=== PATIENT | female | born 1930 | race Caucasian/White ===

== ENCOUNTER 2017-03-15 13:23 | Inpatient (IN) | payer MEDICARE, BC ==
[~2017-03-15] VITALS: Ht 160 cm; Wt 59.0 kg
[2017-03-15 13:38] VITALS: BP 159/52
[2017-03-15] MEDS ORDERED: NORVASC2.5 MG PO (13:43)
[2017-03-15] MEDS ORDERED: LEXAPRO10 MG PO (13:44)
[2017-03-15] MEDS ORDERED: XARELTO10 MG PO (13:45)
[2017-03-15] MEDS ORDERED: ULTRAM50 MG PO (13:45)
--- NOTE | 2017-03-15 14:59 | NUR ---
RESTING QUIETLY IN BED. EYES CLOSED. NO S/S DISTRESS. CALL LIGHT IN REACH
--- NOTE | 2017-03-15 18:48 | NUR ---
MAX ASST TO TRANSFER. TAPE SALAS NOTED TO LEG WHERE HIP DSG WAS AND RAW AREA TO LEGS WHERE NAIF HOSE WERE ROLLED DOWN TO.
--- NOTE | 2017-03-15 19:50 | NUR ---
DAUGHTER IN BED SIDE TALK TO PT.
--- NOTE | 2017-03-15 21:20 | NUR ---
PT C/O TAPE BURN IN HIP, CHECK AND TALK TO CHARGE NURSE. AND APPLIED MEPILEX BORDER LITE DRESSING COVER TAPE BURN AREA.
--- NOTE | 2017-03-15 21:25 | NUR ---
PT C/O WOUND AREA IRRITATED BY BLANKET AND WANT DRESSING COVER WOUND AREA. CLEAN WOUND WITH WOUND CLEANSER, COVER AND SECURE WITH ISLAND WOUND DRESSING.
--- NOTE | 2017-03-16 00:36 | NUR ---
ASSISTED PT WITH BEDPAN.
[2017-03-16 01:32] VITALS: BP 150/52
--- NOTE | 2017-03-16 04:00 | NUR ---
IN BED, EYES CLOSED.
--- NOTE | 2017-03-16 04:10 | NUR ---
PT REST QUIETLY IN BED, EYE CLOSE, BED LOW, CALL LIGHT WITHIN REACH.
[2017-03-16 06:52] LABS: BASOPHILS 0.3 % (0-2); EOSINOPHILS 3.9 % (0-7); HEMATOCRIT 29.8 % (36.0-48.0); HEMOGLOBIN 9.9 g/dL (12-16); IMMATURE GRANULOCYTES 0.5 % (0-5); LYMPHOCYTES 39.5 % (15-50); MCH 31.8 pg (26.0-34.0); MCHC 33.2 g/dL (31.0-37.0); MCV 95.8 fL (80.0-100.0); MONOCYTES 12.6 % (2-11); NEUTROPHILS 43.2 % (40-80); PLATELET COUNT 199 10x3/uL (130-400); RBC 3.11 10x6/uL (4.00-5.40); RDW 12.6 % (11.5-14.5); WBC 6.5 10x3/uL (4.8-10.8)
[2017-03-16 07:22] LABS: ANION GAP 8.9 mmol/L (8-16); CALCIUM 8.7 mg/dL (8.5-10.1); CARBON DIOXIDE 30.5 mmol/L (21.0-32.0); CREATININE - SERUM 0.9 mg/dL (0.6-1.3); POTASSIUM - SERUM 3.4 mmol/L (3.5-5.1)
[2017-03-16 08:38] VITALS: BP 143/44
--- NOTE | 2017-03-16 16:21 | NUR ---
Patient in bed, hob 30 degrees, complaints of pain 5/10 on numeric scale. She was given 50 mg of ultram. She is resting comfortably. foam booties on feet, bed low, call light in reach. Continue to monitor, continue plan of care.
--- NOTE | 2017-03-16 18:09 | NUR ---
Patient in bed, hob 30 degrees, complaints of pain 5/10 on numeric scale. She was given 50 mg of ultram. She is resting comfortably. Foam booties on feet, bed low, call light in reach. Continue to monitor, continue plan of care.
--- NOTE | 2017-03-16 20:00 | NUR ---
PT IN BED WITH HOB UP FOR COMFORT. RESTING QUIETLY. NO 02. NO IV. ALERT & ORIENTED. MOD. TO MAX. ASSIST. CONTINENT OF BOWEL AND BLADDER. PAIN LEVEL 0/10. EXCORIATION IN THREE PLACES ON RIGHT HIP AND THIGH. RIGHT HIP ISLAND DRESSING C/D/I. BED IN LOWEST POSITION AND CALL LIGHT WITHIN REACH.
--- NOTE | 2017-03-16 20:00 | NUR ---
PT IN BED WITH HOB UP FOR COMFORT. TALKING ON CELLPHONE. NO 02. NO IV. ALERT & ORIENTED. CONTINENT OF BOWEL AND BLADDER. PAIN LEVEL 0/10. SMOKER. STAND BY ASSIST. VENOUS STASIS ULCER RIGHT LEG. BED IN LOWEST POSITION AND CALL LIGHT WITHIN REACH.
[2017-03-16 22:07] VITALS: BP 128/74
--- NOTE | 2017-03-17 | NUR ---
PT IN BED WITH HOB UP FOR COMFORT. EYES CLOSED. CHEST RISING AND FALLING. BED IN LOWEST POSITION AND CALL LIGHT WITHIN REACH.
--- NOTE | 2017-03-17 04:00 | NUR ---
PT IN BED WITH HOB UP FOR COMFORT. EYES CLOSED. RESPIRATIONS EVEN AND UNLABORED. BED IN LOWEST POSITION AND CALL LIGHT WITHIN REACH.
--- NOTE | 2017-03-17 08:00 | NUR ---
SHIFT ASSMT COMPLETED.RIGHT HIP DRSG INTACT.SITTING UP IN BED FOR BREAKFAST.CL IN REACH.
[2017-03-17 09:24] VITALS: BP 140/41
--- NOTE | 2017-03-17 12:00 | NUR ---
MEAL TRAY GIVEN.CL IN REACH.
--- NOTE | 2017-03-17 16:00 | NUR ---
NO CO VOICED.CL IN REACH.
--- NOTE | 2017-03-17 19:40 | NUR ---
ASSISTED PT WITH BEDPAN.
[2017-03-17 21:02] VITALS: BP 128/64
--- NOTE | 2017-03-17 21:40 | NUR ---
DRESSING CHANGE FOR PT.
--- NOTE | 2017-03-18 02:37 | NUR ---
PT REST IN BED, EYE CLOSE, BED LOW, CALL LIGHT WITHIN REACH.
--- NOTE | 2017-03-18 04:42 | NUR ---
ASSISTED PT TO BATHROOM AND BACK TO BED.
[2017-03-18 06:22] LABS: BASOPHILS 0.3 % (0-2); EOSINOPHILS 1.5 % (0-7); HEMOGLOBIN 9.3 g/dL (12-16); IMMATURE GRANULOCYTES 0.4 % (0-5); LYMPHOCYTES 27.7 % (15-50); MCH 31.8 pg (26.0-34.0); MCHC 33.2 g/dL (31.0-37.0); MCV 95.9 fL (80.0-100.0); MEAN PLATELET VOLUME 10.2 fL (7.4-10.4); MONOCYTES 11.5 % (2-11); NEUTROPHILS 58.6 % (40-80); RBC 2.92 10x6/uL (4.00-5.40); RDW 12.6 % (11.5-14.5); WBC 6.7 10x3/uL (4.8-10.8)
[2017-03-18 06:29] LABS: PLATELET COUNT 267 10x3/uL (130-400)
[2017-03-18 06:56] LABS: ANION GAP 11.2 mmol/L (8-16); CALCIUM 8.8 mg/dL (8.5-10.1); CARBON DIOXIDE 29.1 mmol/L (21.0-32.0); CREATININE - SERUM 0.9 mg/dL (0.6-1.3)
[2017-03-18 07:18] LABS: POTASSIUM - SERUM 4.3 mmol/L (3.5-5.1)
--- NOTE | 2017-03-18 08:00 | NUR ---
SHIFT ASSMT COMPLETED.DENIES NEEDS.DRSG RT HIP INTACT.
[2017-03-18 09:06] VITALS: BP 123/41
--- NOTE | 2017-03-18 12:00 | NUR ---
EATING LUNCH.CL IN REACH.
[2017-03-18 13:26] VITALS: Ht 160 cm; Wt 59.0 kg
--- NOTE | 2017-03-18 16:00 | NUR ---
RESTING QUIETLY.CL IN REACH.
--- NOTE | 2017-03-18 17:00 | NUR ---
CARE TEAM MEETING: FAMILY ATTENDED MEETING, PATIENT NEW TO UNIT AND WILL BE RA AT NEXT MEETING. PLANS ARE FOR PATIENT TO RETURN HOME OR POSSIBLE ASSISTED LIVING. WILL CONTINUE TO FOLLOW WITH PATIENT.
--- NOTE | 2017-03-18 19:50 | NUR ---
PT RECEIVED IN BED WITH EYES OPEN WATCHING TV. NO COMPLAINTS OF PAIN OR DISCOMFORT OR OTHER NEEDS OR CONCERNS MADE KNOWN. CALL LIGHT IN REACH. WILL CONTINUE TO OBSERVE.
[2017-03-18 22:58] VITALS: BP 132/58
--- NOTE | 2017-03-18 22:59 | NUR ---
PT IN BED WITH EYES OPEN IN DARK. NO CONCERNS OR COMPLAINTS MADE KNOWN AT THIS TIME. CALL LIGHT IN REACH. WILL CONTINUE TO OBSERVE.
--- NOTE | 2017-03-19 01:38 | NUR ---
PT IN BED WITH EYES CLOSED AND CHEST RISING. NO SIGN/SYMPTOMS OF DISTRESS NOTED. CALL LIGHT IN REACH. WILL CONTINUE TO OBSERVE.
--- NOTE | 2017-03-19 06:39 | NUR ---
PT IN BED WITH EYES OPEN DRINKING COFFEE. NO CONCERNS NOTED AT THIS TIME. RECEIVED AM MEDICATIONS PER MAR WITHOUT DIFFICULTY. MODERATE ASSIST WITH TRANSFER TO WHEELCHAIR TO TOILET AND BACK TO BED. PT PIVOTING ON LEFT LEG. CALL LIGHT IN REACH.
--- NOTE | 2017-03-19 07:30 | NUR ---
AWAKE.DENIES PAIN AT PRESENT TIME BUT STATES PAIN WITH ACTIVITY.ASSESSMENT COMPLETED.IS NON WEIGHT BEARING RT.LEG.INCISIONS HEALING WELL,WILL CONTINUE WITH PLAN OF CARE.ASSISTED TO BR WHERE SHE VOIDED WITHOUT PROBLEM.
[2017-03-19 09:42] VITALS: BP 134/44
--- NOTE | 2017-03-19 19:15 | NUR ---
PT RECEIVED IN BED WITH EYES OPEN. DAUGHTER AT BEDSIDE. STATES SHE JUST RETURNED FROM BATHROOM WITH ASSIST FROM DAUGHTER. NO NEEDS OR CONCERNS NOTED AT THIS TIME. CALL LIGHT IN REACH. WILL CONTINUE TO OBSERVE.
[2017-03-19 22:11] VITALS: BP 128/68
--- NOTE | 2017-03-19 23:27 | NUR ---
PT IN BED WITH EYES CLOSED AND CHEST RISING. NO CONCERNS NOTED AT THIS TIME. ASSISTED TO TOILET WITH MIN ASSIST AND RETURNED TO BED PIVOTING ON LEFT FOOT ON TRANSFERS. CALL LIGHT IN REACH. WILL CONTINUE TO OBSERVE.
--- NOTE | 2017-03-20 02:40 | NUR ---
PT IN BED WITH EYES CLOSED AT THIS TIME. NO SIGN/SYMPTOMS OF DISTRESS NOTED. CALL LIGHT IN REACH. WILL CONTINUE TO OBSERVE.
[2017-03-20 07:18] LABS: BASOPHILS 0.3 % (0-2); EOSINOPHILS 0.7 % (0-7); HEMATOCRIT 28.8 % (36.0-48.0); HEMOGLOBIN 9.3 g/dL (12-16); IMMATURE GRANULOCYTES 0.3 % (0-5); LYMPHOCYTES 30.2 % (15-50); MCH 31.3 pg (26.0-34.0); MCHC 32.3 g/dL (31.0-37.0); MEAN PLATELET VOLUME 9.9 fL (7.4-10.4); MONOCYTES 11.4 % (2-11); NEUTROPHILS 57.1 % (40-80); RBC 2.97 10x6/uL (4.00-5.40); RDW 12.9 % (11.5-14.5); WBC 7.6 10x3/uL (4.8-10.8)
[2017-03-20 07:28] LABS: PLATELET COUNT 349 10x3/uL (130-400)
[2017-03-20 07:53] LABS: ANION GAP 11.3 mmol/L (8-16); CALCIUM 8.5 mg/dL (8.5-10.1); CREATININE - SERUM 0.9 mg/dL (0.6-1.3); POTASSIUM - SERUM 4.3 mmol/L (3.5-5.1)
[2017-03-20 09:01] VITALS: BP 150/50
--- NOTE | 2017-03-20 14:10 | NUR ---
Nutrition Follow Up: Chart reviewed. Pt is eating 50% meal avg on a regular diet. Wt stable. +BM 03/19/17. Labs reviewed. Meds noted including Megace. Pt with fair but improving po intake. Rec continue current diet. Will add Ensure with meals. Rec continue Megace. RD following.
--- NOTE | 2017-03-20 17:30 | NUR ---
ASSISTED PT TO BATHROOM AND BACK TO BED.
[2017-03-20 19:00] VITALS: BP 130/76
--- NOTE | 2017-03-20 21:20 | NUR ---
PT REST IN BED, BED LOW, CALL LIGHT WITHIN REACH.
--- NOTE | 2017-03-20 22:26 | NUR ---
ASSISTED PT TO BATHROOM AND BACK TO BED.
--- NOTE | 2017-03-21 00:55 | NUR ---
IN BED, EYES CLOSED. NO EVIDENT DISTRESS.
--- NOTE | 2017-03-21 04:20 | NUR ---
ASSISTED PT TO BATHROOM AND BACK TO BED.
[2017-03-21 08:00] VITALS: BP 154/57
--- NOTE | 2017-03-21 08:00 | NUR ---
SHIFT ASSMT COMPLETED.MEAL SET-UP PROVIDED.DENIES NEEDS.INCISIONS RIGHT HIP WITH ABIOLA INTACT.CL IN REACH.
--- NOTE | 2017-03-21 12:00 | NUR ---
EATING LUNCH.DENIES NEEDS.
--- NOTE | 2017-03-21 15:30 | NUR ---
ABIOLA REMOVED STERI STRIPS APPLIED INCISION CLEAN DRY INTACT PT TOLERATED WELL
--- NOTE | 2017-03-21 19:35 | NUR ---
ASSISTED PT TO BATHROOM AND BACK TO BED.
--- NOTE | 2017-03-21 21:30 | NUR ---
PT REST IN BED, EYE OPEN, DENIES NEEDS.
[2017-03-21 23:55] VITALS: BP 150/43
--- NOTE | 2017-03-22 00:40 | NUR ---
RESTING QUIETLY, EYES CLOSED.
--- NOTE | 2017-03-22 04:10 | NUR ---
PT REST QUIETLY IN BED, BED LOW, CALL LIGHT WITHIN REACH.
[2017-03-22 08:00] VITALS: BP 146/55
--- NOTE | 2017-03-22 19:45 | NUR ---
PT. IN PROCESS OF GETTING BACK INTO BED AFTER USING BR TO URINATE. POSITIONED TO COMFORT. ASSESSMENT COMPLETED. NO VOICED NEEDS AT THIS TIME AND HER CALL LIGHT IS WITHIN REACH.
--- NOTE | 2017-03-22 23:06 | NUR ---
PT. IN BED WITH HOB ALMOST FLAT. EYES CLOSED AND RESP. DEEP AND EVEN. CALL LIGHT WITHIN REACH.
[2017-03-22 23:20] VITALS: BP 89/44
--- NOTE | 2017-03-23 03:09 | NUR ---
PT. IN BED LYING FLAT FOR COMFORT WITH EYES CLOSED AND RESP. EVEN. CALL LIGHT WITHIN REACH.
[2017-03-23 06:40] LABS: BASOPHILS 0.3 % (0-2); EOSINOPHILS 0.4 % (0-7); HEMATOCRIT 31.2 % (36.0-48.0); IMMATURE GRANULOCYTES 0.9 % (0-5); LYMPHOCYTES 32.9 % (15-50); MCH 31.4 pg (26.0-34.0); MCHC 32.1 g/dL (31.0-37.0); MCV 98.1 fL (80.0-100.0); MEAN PLATELET VOLUME 9.9 fL (7.4-10.4); MONOCYTES 9.1 % (2-11); NEUTROPHILS 56.4 % (40-80); PLATELET COUNT 480 10x3/uL (130-400); RBC 3.18 10x6/uL (4.00-5.40); RDW 13.4 % (11.5-14.5); WBC 9.2 10x3/uL (4.8-10.8)
[2017-03-23 06:55] LABS: ANION GAP 11.4 mmol/L (8-16); CALCIUM 9.1 mg/dL (8.5-10.1); CARBON DIOXIDE 28.9 mmol/L (21.0-32.0); CREATININE - SERUM 0.9 mg/dL (0.6-1.3); POTASSIUM - SERUM 4.3 mmol/L (3.5-5.1)
--- NOTE | 2017-03-23 07:36 | NUR ---
RESTING QUIETLY IN BED CALL LIGHT IN REACH
[2017-03-23 09:10] VITALS: BP 130/47
--- NOTE | 2017-03-23 16:05 | NUR ---
PT SITTING UP IN BED INTERACTING WITH FAMILY
--- NOTE | 2017-03-23 17:42 | NUR ---
PT IN BED VISITING WITH FAMILY
[2017-03-23 19:04] VITALS: BP 139/50
--- NOTE | 2017-03-23 19:20 | NUR ---
PT. IN BED WITH HOB UP FOR COMFORT AND IS WATCHING TV. ASSESSMENT COMPLETED. NO VOICED NEEDS AT THIS TIME AND WILL WANT HER PAIN MED. SCHEDULED TO KEEP PAIN CONTROLLED. CALL LIGHT WITHIN REACH.
--- NOTE | 2017-03-23 23:02 | NUR ---
PT. IN BED WITH HOB UP FOR COMFORT WITH EYES CLOSED AND RESP. DEEP AND EVEN. CALL LIGHT WITHIN REACH.
--- NOTE | 2017-03-24 03:01 | NUR ---
PT. IN BED WITH HOB UP FOR COMFORT WITH EYES CLOSED AND RESP. DEEP AND EVEN. CALL LIGHT WITHIN REACH.
--- NOTE | 2017-03-24 06:26 | NUR ---
PT. IN BED WITH HOB UP FOR COMFORT WITH EYES CLOSED AND RESP. EVEN. PT. AWAKENED EASILY FOR MORNING MEDS. NO C/O PAIN AND PT. STATED SHE WILL WANT SOMETHING CLOSER TO THERAPY TIME. CALL LIGHT WITHIN REACH.
--- NOTE | 2017-03-24 07:30 | NUR ---
LAYING ON BACK IN BED WITH EYES CLOSED. NO S/S DISTRESS. CALL LIGHT IN REACH
[2017-03-24 08:00] VITALS: BP 139/47
--- NOTE | 2017-03-24 10:48 | NUR ---
SITTING UP IN W/C. DENIES NEEDS OR INCREASED PAIN.
--- NOTE | 2017-03-24 13:36 | NUR ---
Nutrition Follow Up: Pt reported that her appetite is improving. She said that she does not like the scrambled eggs here. Pt said that she is drinking Ensure. Pt is eating 60% meal avg on a regular diet. No new wt. +BM 03/22/17. Labs reviewed. Meds noted including Megace. Pt with improving po intake. Rec continue current diet. Will honor food preferences. Rec continue appetite stimulant. RD following.
--- NOTE | 2017-03-24 19:15 | NUR ---
ASSESSMENT PER FLOW SHEET, PT REPORTS BM YESTERDAY, +FLATUS, PT REQUESTS TO GET UP LATER TO CHANGE INTO GOWN, INFORMED PT TO USE CALL LIGHT WHEN READY, PT DENIES NEEDS OR PAIN AT THIS TIME
--- NOTE | 2017-03-24 20:25 | NUR ---
PT IN BED, DAYCARE PROVIDER ASSISTED PT WITH [place], INFORMED PT THAT PAIN MED WAS DUE AROUND 9:30PM, PT VERBALIZES UNDERSTANDING, PT DENIES NEEDS AT THIS TIME
--- NOTE | 2017-03-24 21:28 | NUR ---
PT AWAKE, ADM PAIN MED PO PER MD ORDERS, SEE EMAR, PT UP TO BR VIA WC WITH ASSISTANCE, PT VOIDED BY SELF WITH NO DIFFICULTY, PT BACK TO BED, HEEL BOOT PLACED BACK ON, DENIES FURTHER NEEDS
[2017-03-24 21:39] VITALS: BP 148/44
--- NOTE | 2017-03-24 22:15 | NUR ---
PT RESTING WITH EYES CLOSED, RESP QUIET, NO DISTRESS NOTED, LEFT UNDISTURBED AT THIS TIME
--- NOTE | 2017-03-25 00:02 | NUR ---
PT RESTING WITH EYES CLOSED, RESP QUIET, NO DISTRESS NOTED, LEFT UNDISTURBED AT THIS TIME
--- NOTE | 2017-03-25 02:20 | NUR ---
PT COMPENSATION VICE PRESIDENT LIGHT, PT UP TO BR VIA WC WITH ASSISTANCE, PT TO COMMODE, VOIDED BY SELF WITH NO DIFFICULTY, PT BACK TO BED, HEEL PROTECTOR BACK ON, PT DENIES FURTHER NEEDS OR PAIN
--- NOTE | 2017-03-25 04:10 | NUR ---
PT RESTING WITH EYES CLOSED, RESP QUIET, NO DISTRESS NOTED, LEFT UNDISTURBED AT THIS TIME
--- NOTE | 2017-03-25 06:00 | NUR ---
PT UP TO BR VIA WC WITH ASSISTANCE, PT VOIDED BY SELF WITH NO DIFFICULTY, PT BACK TO BED, DENIES FURTHER NEEDS AT THIS TIME
[2017-03-25 06:12] LABS: BASOPHILS 0.2 % (0-2); EOSINOPHILS 0.3 % (0-7); HEMATOCRIT 31.1 % (36.0-48.0); HEMOGLOBIN 10.3 g/dL (12-16); IMMATURE GRANULOCYTES 0.6 % (0-5); LYMPHOCYTES 30.8 % (15-50); MCHC 33.1 g/dL (31.0-37.0); MCV 96.6 fL (80.0-100.0); MEAN PLATELET VOLUME 9.4 fL (7.4-10.4); NEUTROPHILS 59.1 % (40-80); PLATELET COUNT 490 10x3/uL (130-400); RBC 3.22 10x6/uL (4.00-5.40); RDW 13.6 % (11.5-14.5); WBC 9.4 10x3/uL (4.8-10.8)
--- NOTE | 2017-03-25 06:30 | NUR ---
ADM 0700 MED PO PER MD ORDERS, SEE EMAR, PT DENIES NEEDS OR PAIN AT THIS TIME
[2017-03-25 06:37] LABS: ANION GAP 11.5 mmol/L (8-16); CALCIUM 8.7 mg/dL (8.5-10.1); CARBON DIOXIDE 27.9 mmol/L (21.0-32.0); CREATININE - SERUM 0.9 mg/dL (0.6-1.3); POTASSIUM - SERUM 4.4 mmol/L (3.5-5.1)
--- NOTE | 2017-03-25 07:00 | NUR ---
SHIFT REPORT TO DAY SHIFT
--- NOTE | 2017-03-25 08:00 | NUR ---
SHIFT ASSMT COMPLETED.SITTING UP FOR BREAKFAST.CL IN REACH.INCISION CLEAN INTACT AND DRY.
[2017-03-25 08:18] VITALS: BP 147/44
--- NOTE | 2017-03-25 12:00 | NUR ---
SITTING UP EATING.CL IN REACH.FAMILY AT BEDSIDE.
--- NOTE | 2017-03-25 16:00 | NUR ---
HAD BM X 3 AFTER LAXATIVE.GOOD RESULTS.CL IN REACH.
--- NOTE | 2017-03-25 17:05 | NUR ---
CARE TEAM MEETING: DAUGHTER ATTENDED MEETING.PATIENT AND DAUGHTER WANTS REFERRAL MADE TO [facility] IN [place] FOR WHEN SHE IS DISCHARGED. TENATIVE DISCHARGE DATE IS 03/31/17. WILL CONTINUE TO FOLLOW WITH PATIENT
[2017-03-25 19:07] VITALS: BP 142/48
--- NOTE | 2017-03-25 19:40 | NUR ---
ASSISTED PT TO BATHROOM AND BACK TO BED. ALERT AND ORIENTED. PAIN LEVEL 0/10. NO 02. NO IV. NON WEIGHT BEARING ON RIGHT LEG. MIN. ASSIST. BED IN LOWEST POSITION AND CALL LIGHT WITHIN REACH.
--- NOTE | 2017-03-25 23:40 | NUR ---
PT IN BED WITH HOB UP FOR COMFORT. EYES CLOSED. CHEST RISING AND FALLING. BED IN LOWEST POSITION AND CALL LIGHT WITHIN REACH.
--- NOTE | 2017-03-26 03:40 | NUR ---
PT IN BED WITH HOB UP FOR COMFORT. EYES CLOSED. RESPIRATIONS EVEN AND UNLABORED. BED IN LOWEST POSITION AND CALL LIGHT WITHIN REACH.
--- NOTE | 2017-03-26 08:00 | NUR ---
SHIFT ASSMT COMPLETED.DENIES NEEDS.STATES NO LAXATIVES TODAY.DENIES PAIN TO RIGHT HIP.INCISION INTACT.CL IN REACH.
--- NOTE | 2017-03-26 11:06 | NUR ---
patient has been accepted to [facility] in [place] and will discharge there 03/31/16 via facility van. family and patient has been notified
[2017-03-26 11:44] VITALS: BP 142/42
--- NOTE | 2017-03-26 12:00 | NUR ---
SITTING UP EATING LUNCH.
--- NOTE | 2017-03-26 12:07 | RHP ---
PATIENT: IRLANDA JONES MEDICAL RECORD: [id number] ACCOUNT: [id number] LOCATION:[facility]1117 : [birth year] ADMISSION DATE: 03/15/17 REHABILITATION HISTORY AND PHYSICAL EXAMINATION POST ADMISSION PHYSICIAN EXAMINATION DATE OF ADMISSION TO THE REHAB: 03/15/2017 ADMITTING DIAGNOSIS: Right intertrochanteric hip fracture. HISTORY OF PRESENT ILLNESS: The patient is an 86-year-old female patient, who is status post nailing of her right intertrochanteric hip fracture. She lives alone in [place]. In the morning of March 11, she was walking into her kitchen to get a cup of coffee and fell on to the floor. She was unsure why she passed out. She had immediate pain and inability to bear weight on her right leg. She was brought to the Emergency Room. X-rays revealed an intertrochanteric hip fracture. She was admitted with orthopedic consult. On March 12, she went to the OR for intramedullary nailing of the right intertrochanteric fracture. She had postop anemia, but did not require blood transfusion. Prior to admission, she was completely independent with ADLs and mobility without assistive device. She continues to drive. She is currently [id number] assist for mobility. She lives alone and her next-of-kin is her daughter who lives here in [place]. She is motivated to regain her strength and be able to return home at [place] in her prior level of functioning. COMORBIDITIES: Include status post intramedullary nailing of a right intertrochanteric hip fracture, postoperative anemia, hypertension, depression, right hip pain, fall, decreased standing tolerance, pain intolerance and self-care deficits. PAST MEDICAL HISTORY: Significant for hypertension and depression. PAST SURGICAL HISTORY: Includes a knee arthroscopy. ALLERGIES: SULFA, CODEINE AND SHELLFISH. CURRENT MEDICATIONS: Include Lexapro 10 mg daily, amlodipine 2.5 mg daily. She is on Xarelto 10 mg daily and tramadol 50 mg q.4 hours as needed for pain. HABITS: No alcohol or tobacco use. FAMILY HISTORY: Noncontributory. SOCIAL HISTORY: The patient hopes to return to [place] and get back to her prior level of functioning. Lives alone. REVIEW OF SYSTEMS: GENERAL: Denies weakness or fatigue. HEENT: Denies cold, cough, or congestion. CARDIOVASCULAR: Denies chest pain. PHYSICAL EXAMINATION: VITAL SIGNS: Stable, afebrile. GENERAL: A well-developed elderly female in no acute distress, alert upon exam. HEENT: Normocephalic, atraumatic. Mucosa moist. HISTORY AND PHYSICAL [id number] KARENIRLANDA NECK: Supple. No lymphadenopathy. LUNGS: Clear at this time. HEART: Regular rate and rhythm. ABDOMEN: Benign. EXTREMITIES: Consistent with hip surgery and postop swelling appears normal. NEUROLOGIC: Seems intact. LABORATORY DATA: Her white count is 6.5, H&H of 10 and 29 and her platelet count is noted to be 199. Sodium 136, potassium is 3.4, BUN and creatinine of 14 and 0.9, blood sugar is noted to be 98. ASSESSMENT: This is an 86-year-old female patient admitted to rehab with a working diagnosis of status post intramedullary nailing of a right intertrochanteric hip fracture. The patient has potential to make improvement. We instituted the following multidisciplinary therapies including, but not limited to physical, occupational, respiratory, speech, nutritional services, prosthetics and orthotics. Given her complex condition and risk for more complications, rehabilitation services cannot be provided at a low level of care such as a [facility] facility. PLAN: 1. Admit to [facility] rehab for intensive inpatient therapy to include the following disciplines: A. Physical therapy to improve gait, all transfer skills and bed mobility to a modified independent level. B. Occupational therapy to improve activities of daily living to a modified independent level. C. Case management to assist with discharge planning and placement options. D. Nutrition to assist with nutritional needs. E. Rehabilitation nursing to assist in monitoring the patient's underlying medical conditions and to assist with any type of bowel or bladder management. 2. The patient's current medication and medical care will be continued. 3. The patient will be placed on standard fall precautions. 5. We will work on getting her mobility and ADLs back up to her standards and hopefully get her home to [place]. 6. We will discuss this patient during care team staff meeting this week. TRANSINT:[id number] Voice Confirmation ID: [id number] DOCUMENT ID: [id number] MOIRA notes whether there has been none or any medical/functional change since admission: - MOIRA attests patient continues to be appropriate for IRF: - HISTORY AND PHYSICAL [id number] IRLANDA JONES SCOTT MD at 1207 CC: [id number] DICTATION DATE: 03/16/1734 RETAIL DEPARTMENT MANAGER: 03/16/17 1002 ADM IN [facility] [address] [id number]
--- NOTE | 2017-03-26 16:00 | NUR ---
SITTING UP IN CHAIR.CL IN REACH
--- NOTE | 2017-03-26 20:00 | NUR ---
ASSISTED PT TO BATHROOM AND BACK TO BED. ALERT AND ORIENTED. PAIN LEVEL 0/10. NO 02. NO IV. NON WEIGHT BEARING ON RIGHT LEG. STAND BY TO MIN. ASSIST. BED IN LOWEST POSITION AND CALL LIGHT WITHIN REACH.
[2017-03-26 20:10] VITALS: BP 144/50
--- NOTE | 2017-03-27 | NUR ---
PT IN BED WITH HOB UP FOR COMFORT. EYES CLOSED. CHEST RISING AND FALLING. BED IN LOWEST POSITION AND CALL LIGHT WITHIN REACH.
--- NOTE | 2017-03-27 00:50 | NUR ---
ASSISTED PATIENT UP TO BR COMMODE, AND THEN BACK TO BED. PATIENT URINATED AT COMMODE AND HAD A MEDIUM VOLUME FORMED BM. SR UP X3. WATER AND CALL LIGHT IN REACH.
--- NOTE | 2017-03-27 07:45 | NUR ---
RESTING QUIETLY IN BED CALL LIGHT IN REACH
[2017-03-27 11:19] VITALS: BP 143/52
--- NOTE | 2017-03-27 12:39 | NUR ---
SITTING UP IN BED EATING LUNCH. MIN ASST TO TRANSFER TO AND FROM W/C TO BED. NO S/S INFECTION TO INCISION TO HIP. DOES C/O RT ELBOW PAIN.
[2017-03-27 19:08] VITALS: BP 154/79
--- NOTE | 2017-03-27 19:20 | NUR ---
SITTING UP ON BEDSIDE REMOVING HER SWEATER. DENIES NEEDS.
--- NOTE | 2017-03-28 | NUR ---
PT LYING IN BED WITH HOB UP FOR COMFORT. EYES CLOSED. RESPIRATIONS EVEN AND UNLABORED. BED IN LOWEST POSITION AND CALL LIGHT WITHIN REACH.
--- NOTE | 2017-03-28 03:44 | NUR ---
PT IN BED WITH HOB UP FOR COMFORT. EYES CLOSED. CHEST RISING AND FALLING. BED IN LOWEST POSITION AND CALL LIGHT WITHIN REACH.
--- NOTE | 2017-03-28 12:17 | NUR ---
RESTING IN BED WITH EYES CLOSED. RESP EFFORT NON LABORED. CALL LIGHT IN REACH
[2017-03-28 13:07] VITALS: BP 144/43
[2017-03-28 19:00] VITALS: BP 149/483
--- NOTE | 2017-03-28 23:05 | NUR ---
PT C/O PAIN IN LEG, A SCALE OF 4, PAIN MED GIVEN.
--- NOTE | 2017-03-28 23:46 | NUR ---
PT REST IN BED, EYE OPEN, DENIES NEEDS.
--- NOTE | 2017-03-28 23:57 | NUR ---
PT REST QUIETLY IN BED, EYE CLOSE, BED LOW, CALL LIGHT WITHIN REACH.
--- NOTE | 2017-03-29 02:20 | NUR ---
RESTING IN BED ON LEFT SIDE, EYES CLOSED. APPEARS COMFORTABLE.
--- NOTE | 2017-03-29 08:33 | NUR ---
SITTING UP EATING BREAKFAST DENIES NEEDS CALL LIGHT IN REACH
[2017-03-29 10:48] VITALS: BP 139/53
--- NOTE | 2017-03-29 14:53 | NUR ---
RESTING QUIETLY IN BED. DENIES INCREASED PAIN. CALL LIGHT IN REACH
[2017-03-29 19:15] VITALS: BP 151/68
--- NOTE | 2017-03-29 19:20 | NUR ---
PT. IN BED WITH HOB UP FOR COMFORT AND ASSISTED TO W/C TO GO TO THE BR. PT. HAD SMALL BM AND URINATED. ASSISTED BACK TO BED AND POSITIONED TO COMFORT. ASSESSMENT COMPLETED. NO VOICED NEEDS AT THIS TIME AND SHE HAS HER CALL LIGHT WITHIN REACH.
--- NOTE | 2017-03-29 23:14 | NUR ---
PT. IN BED WITH HOB ALMOST FLAT WITH EYES CLOSED AND RESP. DEEP AND EVEN. CALL LIGHT WITHIN REACH.
--- NOTE | 2017-03-30 03:10 | NUR ---
PT. IN BED WITH HOB UP FOR COMFORT WITH EYES CLOSED AND RESP. EVEN. CALL LIGHT WITHIN REACH.
--- NOTE | 2017-03-30 05:40 | NUR ---
PT. IN BED WITH HOB SLIGHTLY ELEVATED AND HAS NO VOICED NEEDS AT THIS TIME. CALL LIGHT WITHIN REACH.
[2017-03-30 07:32] LABS: BASOPHILS 0.4 % (0-2); EOSINOPHILS 0.8 % (0-7); HEMATOCRIT 33.9 % (36.0-48.0); HEMOGLOBIN 10.9 g/dL (12-16); IMMATURE GRANULOCYTES 0.4 % (0-5); LYMPHOCYTES 35.8 % (15-50); MCH 31.2 pg (26.0-34.0); MCHC 32.2 g/dL (31.0-37.0); MCV 97.1 fL (80.0-100.0); MEAN PLATELET VOLUME 9.2 fL (7.4-10.4); MONOCYTES 9.8 % (2-11); NEUTROPHILS 52.8 % (40-80); PLATELET COUNT 386 10x3/uL (130-400); RBC 3.49 10x6/uL (4.00-5.40); RDW 13.7 % (11.5-14.5); WBC 7.1 10x3/uL (4.8-10.8)
[2017-03-30 07:56] LABS: ANION GAP 11.6 mmol/L (8-16); CALCIUM 8.5 mg/dL (8.5-10.1); CARBON DIOXIDE 25.5 mmol/L (21.0-32.0); POTASSIUM - SERUM 4.1 mmol/L (3.5-5.1)
--- NOTE | 2017-03-30 08:17 | NUR ---
SITTING UP EATING BREAKFAST DENIES NEEDS CALL LIGHT IN REACH
[2017-03-30 12:22] VITALS: BP 160/49
--- NOTE | 2017-03-30 13:06 | NUR ---
SITTING IN CHAIR IN ROOM EATING AND VISITING WITH DTR
--- NOTE | 2017-03-30 18:11 | NUR ---
SITTING UP IN BED EATING SUPPER. DENIES PAIN OR NEEDS
[2017-03-30 18:59] VITALS: BP 143/47
--- NOTE | 2017-03-30 19:20 | NUR ---
DAUGHTER IN BEDSIDE TALK TO PT.
--- NOTE | 2017-03-30 22:07 | NUR ---
PT REST QUIETLY IN BED, EYE CLOSE, BED LOW, CALL LIGHT WITHIN REACH.
--- NOTE | 2017-03-30 23:25 | NUR ---
EYES OPEN, RESPIRATIONS REGULAR, DENIES PAIN, NO S/S OF ACUTE DISTRESS. PT DENIES NEEDS, WAITING FOR ROOMMATE TO GO TO BED.
--- NOTE | 2017-03-31 08:00 | NUR ---
SHIFT ASSMT COMPLETED.INCISION TO RT HIP HEALING WELL.PLAN FOR DC TO [facility] TODAY.
--- NOTE | 2017-03-31 10:04 | NUR ---
PATIENT DISCHARGING TO [facility].. NO DME OR HH NEEDED AT THIS TIME. DR. BROWN APPOINTMENT WILL BE MADE AT TIME OF DISCHARGE FROM FACILITY. BESSY SANCHEZ 04/23/17 @ 9:00. PATIENT TRANSPORT VIA FACILITY [facility].DAUGHTER AT BEDSIDE. PATIENT CHOICE FORM FOR SNF AND [facility] FORM SIGNED, FILED AND EXPLAINED.
--- NOTE | 2017-03-31 10:15 | NUR ---
DISCHARGED TO [facility]/.STABLE CONDITION NOTED.RX GIVEN.
[2017-03-31 10:34] VITALS: BP 163/47
== END 2017-03-31 10:15 | DRG 561 ==
LOC: D.REHAB 13:23
PROVIDERS: ADMIT Emergency Medicine
DX: S72.141D Displaced intertrochanteric fracture of right femur, subsequent encounter for closed fracture with routine healing (principal); D64.9 Anemia, unspecified; I10 Essential (primary) hypertension; F32.9 Major depressive disorder, single episode, unspecified; M25.551 Pain in right hip; W19.XXXD Unspecified fall, subsequent encounter